=== PATIENT | female | born 1960 | race Caucasian/White ===

== ENCOUNTER → 2016-10-20 | Outpatient (CLI) | payer BC ==
[~2016-10-20] MED LIST: ASCA500 PO; ASPCH81 PO; CHOL100010 PO; CYAN500T13 PO; DIGESTIVE ENZYMES PO; DVN80125 PO; ERGO1CAP41 PO; FOLI1TAB7 PO; HYDR0.5T PO; LEVO25TA5 PO; LUBI8CAP4 PO; MAGN400T6 PO; NXM/40 PO; PANT40TA PO; PRED-301 PO; PRED10TA PO; SIMV20TA2 PO; VALS160T60 PO; [UNRECOGNIZED DRUG - OTHER] PO
[2016-10-20 18:10] LABS: THYROID STIMULATING HORMONE 1.38 uIu/ml (0.300-4.500)
[2016-10-22 16:33] LABS: MICROSOMAL AB <1 IU/ML (<9)
== END | disposition home or self-care (01) ==
LOC: C.LAB1850 17:14
PROVIDERS: ATTEND Family Medicine
DX: E03.9 Hypothyroidism, unspecified (principal); E53.8 Deficiency of other specified B group vitamins; E55.9 Vitamin D deficiency, unspecified

== ENCOUNTER → 2016-12-07 | Outpatient (CLI) | payer BC ==
[2016-12-07 10:07] LABS: CHOLESTEROL/HDL RATIO 3.4; THYROID STIMULATING HORMONE 0.543 uIu/ml (0.300-4.500)
[2016-12-07 10:10] LABS: ESTIMATED AVERAGE GLUCOSE 117 mg/dl; HA1C FLAG Normal (Normal)
== END | disposition home or self-care (01) ==
LOC: C.LAB1850 07:06
PROVIDERS: ATTEND Family Medicine
DX: E78.5 Hyperlipidemia, unspecified (principal); R73.03 Prediabetes; E03.9 Hypothyroidism, unspecified

== ENCOUNTER → 2017-03-22 | Outpatient (CLI) | payer BC ==
[~2017-03-22] MED LIST changes: -ERGO1CAP41 PO; +ERGO500011 PO
--- NOTE | 2017-03-22 15:14 | DIAGNOSTIC IMAGING REPORT ---
KUB CLINICAL HISTORY: CONSTIPATION COMPARISON STUDY: No previous studies for comparison. FINDINGS: There is no pathologic bowel dilatation. There is mild to moderate stool within the right colon. There are no calcifications suspicious for renal calculi. Pelvic basin calcifications likely represent phleboliths. IMPRESSION: 1. No evidence of pathologic bowel dilatation 2. Mild to moderate stool within the right colon. Electronically signed by: Juarez Mccall M.D. 03/22/2017 3:13 PM Dictated Date/Time: 03/22/2017 3:12 PM
[2017-03-22 18:20] LABS: ALT/SGPT 31 U/L (12-78); AST/SGOT 17 U/L (15-37); BLOOD UREA NITROGEN 16 mg/dl (7-18); BUN/CREATININE RATIO 19.3 (10-20); CALCIUM 8.9 mg/dl (8.5-10.1); CARBON DIOXIDE 28 mmol/L (21-32); CHLORIDE 108 mmol/L (98-107); CREATININE 0.81 mg/dl (0.60-1.20); GLUCOSE 97 mg/dl (70-99); POTASSIUM 3.8 mmol/L (3.5-5.1); SODIUM 143 mmol/L (136-145)
[2017-03-22 18:31] LABS: ALB/GLOB RATIO 1.1 (0.9-2); ALKALINE PHOSPHATASE 79 U/L (45-117); THYROID STIMULATING HORMONE 0.725 uIu/ml (0.300-4.500)
== END | disposition home or self-care (01) ==
LOC: C.RADPV 14:35
PROVIDERS: ATTEND Nurse Practitioner
DX: K59.00 Constipation, unspecified (principal); R39.9 Unspecified symptoms and signs involving the genitourinary system; Z79.899 Other long term (current) drug therapy; I10 Essential (primary) hypertension

== ENCOUNTER → 2017-03-31 | Outpatient (CLI) | payer BC ==
[~2017-03-31] MED LIST changes: -DVN80125 PO; +ERGO1CAP41 PO; -ERGO500011 PO; -LEVO25TA5 PO; -MAGN400T6 PO; -PANT40TA PO; -SIMV20TA2 PO; -[UNRECOGNIZED DRUG - OTHER] PO
--- NOTE | 2017-03-31 08:22 | DIAGNOSTIC IMAGING REPORT ---
ABDOMINAL ULTRASOUND, RIGHT UPPER QUADRANT HISTORY: Pain R10.9 Abdominal pain of multiple sites. COMPARISON: 12/31/2014 FINDINGS: Pancreas: The pancreas demonstrates a normal echotexture. Liver: Fatty infiltration Gallbladder: No gallbladder wall thickening. No gallstones. CBD: 4 mm Right kidney: No hydronephrosis. IMPRESSION: Fatty infiltration of liver. Otherwise negative study. No change from the prior exam Electronically signed by: Yehuda Das M.D. 03/31/2017 8:21 AM Dictated Date/Time: 03/31/2017 8:19 AM
== END | disposition home or self-care (01) ==
LOC: C.ULTR 07:29
PROVIDERS: ATTEND Nurse Practitioner
DX: R10.11 Right upper quadrant pain (principal); K76.0 Fatty (change of) liver, not elsewhere classified

== ENCOUNTER → 2017-05-09 | Day surgery (SDC) | payer BC ==
[2017-04-22 12:07] VITALS: Ht 152.4 cm; Wt 90.0 kg
[~2017-05-09] VITALS: Ht 152.4 cm; Wt 90.0 kg
[~2017-05-09] MED LIST changes: -DIGESTIVE ENZYMES PO; +DVN80125 PO; -ERGO1CAP41 PO; +LEVO25TA5 PO; +LIDOCAINE HCL 2% 2 ML VIAL (20MG/ML) ONE; -LUBI8CAP4 PO; +MAGN400T6 PO; -NXM/40 PO; +PANT40TA PO; -PRED-301 PO; -PRED10TA PO; +PROPOFOL IV EMULSION 10 MG/ML 20 ML VIAL IV ONE; +SIMV20TA2 PO; -VALS160T60 PO; +[UNRECOGNIZED DRUG - OTHER] PO
[2017-05-09 12:42] VITALS: TEMP 36.8
--- NOTE | 2017-05-09 13:05 | Endo History and Physical ---
History & Physical Date of Service: May 09, 2017. Chief Complaint: REFLUX, HIATAL HERNIA Referring Physician: DR. STANTON History of Present Illness For EGD Past Surgical History Hx Cardiac Surgery: No Hx Internal Defibrillator: No Hx Pacemaker: No Hx Abdominal Surgery: Yes (EVELYN BSO) Hx of Implantable Prosthesis: No Hx Post-Op Nausea and Vomiting: No Hx Cancer Surgery: Yes (MELANOMA REMOVALS) Hx Thoracic Surgery: No Hx Orthopedic: No Hx Urinary Tract Surgery: No Family History Colon CA Social History Smoking Status: Never Smoker Hx Substance Use: No Hx Alcohol Use: No Allergies Coded Allergies: Lidocaine (Verified Allergy, Severe, ANAPHYLAXIS, 04/22/17) Procaine (Verified Allergy, Severe, anaphylaxis, 05/09/17) Apple (Verified Allergy, Mild, SCRATCHY THROAT, 04/22/17) Lorazepam (Verified Allergy, Mild, HIVES, PSYCH SYMPTOMS, 04/22/17) INCREASED AGITATION Iodine (Verified Allergy, Unknown, "seafood"= hives, 05/09/17) Mushroom (Verified Allergy, Unknown, THROAT SCRATCHY, 04/22/17) NUTS (Verified Allergy, Unknown, HIVES, 04/22/17) Penicillins (Verified Allergy, Unknown, RASH, 04/22/17) Sulfa Drugs (Verified Allergy, Unknown, HIVES, 04/22/17) Current Medications Reported Home Medications Medications Dose Route/Sig Max Daily Dose Days Date Category Dose Instructions [Super Digestive Enz] 1 Tab PO NOON 04/22/17 Reported Mag-Ox (Magnesium Oxide) 400 Mg Tab 400 Mg PO HS 04/22/17 Reported Zocor (Simvastatin) 20 Mg Tab 20 Mg PO HS 04/22/17 Reported Protonix (Pantoprazole Sodium) 40 Mg Tab 40 Mg PO BID 04/22/17 Reported Levothyroxine Sodium 25 Mcg Tab 1 Tab PO QAM 04/22/17 Reported Diovan Hct (Valsartan/Hctz) 1 Tab Tab 0.5 Tab PO NOON 04/22/17 Reported 80MG/12.5MG Vitamin C (Ascorbic Acid) 500 Mg Tab 1,000 Mg PO QPM 01/15/14 Reported Plaquenil (Hydroxychloroquine Sulfate) 200 Mg Tab 200 Mg PO BID 01/15/14 Reported Vitamin D (Cholecalciferol) 1,000 Inter.unit Tab 1,000 Inter.unit PO NOON 08/15/13 Reported Vitamin B12 500MCG (Cyanocobalamin) 500 Mcg Tab 1,000 Mcg PO NOON 06/02/12 Reported Folvite (Folic Acid) 1 Mg Tab 1 Mg PO NOON 06/02/12 Reported Aspirin Tab-Chewable * (Aspirin) 81 Mg Chew 81 Mg PO NOON 07/26/09 Reported Vital Signs Weight (Kilograms): 90 Height (Feet): 5 Height (Inches): 0 Date Time Temp Pulse Resp B/P (MAP) Pulse Ox O2 Delivery O2 Flow Rate FiO2 05/09/17 12:42 36.8 76 16 138/86 (103) 98 Room Air Physical Exam General Appearance: WD/WN Respiratory/Chest: Respiratory effort: no dyspnea Cardiovascular: Heart Auscultation: RRR Abdomen: Inspection & Palpation: soft Assessment and Plan Abd pain for EGD
--- NOTE | 2017-05-09 13:29 | Discharge Instructions ---
Endoscopy Patient Instructions Date / Procedure(s) Performed May 09, 2017. EGD Allergy Information Coded Allergies: Lidocaine (Verified Allergy, Severe, ANAPHYLAXIS, 04/22/17) Procaine (Verified Allergy, Severe, anaphylaxis, 05/09/17) Apple (Verified Allergy, Mild, SCRATCHY THROAT, 04/22/17) Lorazepam (Verified Allergy, Mild, HIVES, PSYCH SYMPTOMS, 04/22/17) INCREASED AGITATION Iodine (Verified Allergy, Unknown, "seafood"= hives, 05/09/17) Mushroom (Verified Allergy, Unknown, THROAT SCRATCHY, 04/22/17) NUTS (Verified Allergy, Unknown, HIVES, 04/22/17) Penicillins (Verified Allergy, Unknown, RASH, 04/22/17) Sulfa Drugs (Verified Allergy, Unknown, HIVES, 04/22/17) Discharge Date / Findings May 09, 2017. Gastric polyps Medication Instructions Stopped Medication(s): 05/05/17 ASPIRIN Restart Stopped Medication(s): resume meds Reported Home Medications Medications Dose Route/Sig Max Daily Dose Days Date Category Dose Instructions [Super Digestive Enz] 1 Tab PO NOON 04/22/17 Reported Mag-Ox (Magnesium Oxide) 400 Mg Tab 400 Mg PO HS 04/22/17 Reported Zocor (Simvastatin) 20 Mg Tab 20 Mg PO HS 04/22/17 Reported Protonix (Pantoprazole Sodium) 40 Mg Tab 40 Mg PO BID 04/22/17 Reported Levothyroxine Sodium 25 Mcg Tab 1 Tab PO QAM 04/22/17 Reported Diovan Hct (Valsartan/Hctz) 1 Tab Tab 0.5 Tab PO NOON 04/22/17 Reported 80MG/12.5MG Vitamin C (Ascorbic Acid) 500 Mg Tab 1,000 Mg PO QPM 01/15/14 Reported Plaquenil (Hydroxychloroquine Sulfate) 200 Mg Tab 200 Mg PO BID 01/15/14 Reported Vitamin D (Cholecalciferol) 1,000 Inter.unit Tab 1,000 Inter.unit PO NOON 08/15/13 Reported Vitamin B12 500MCG (Cyanocobalamin) 500 Mcg Tab 1,000 Mcg PO NOON 06/02/12 Reported Folvite (Folic Acid) 1 Mg Tab 1 Mg PO NOON 06/02/12 Reported Aspirin Tab-Chewable * (Aspirin) 81 Mg Chew 81 Mg PO NOON 07/26/09 Reported Provider Instructions Activity Restrictions - No exercising or heavy lifting for 24 hours. - Do not drink alcohol the day of the procedure. - Do not drive a car or operate machinery until the day after the procedure. - Do not make any important decisions or sign important papers in 24 hours after the procedure. Following Day: - Return to full activity which may include returning to work/school. Diet Start your diet with liquids and light foods (jello, soup, juice, toast). Then eat your usual diet if not nauseated. Treatment For Common After Affects For mild abdominal pain, bloating, or excessive gas: - Rest - Eat lightly - Lie on right side Follow-Up Information Follow-up with DR. STANTON as scheduled Anesthesia Information What You Should Know You have had a procedure that required some medicine to reduce anxiety and discomfort. This treatment is called moderate sedation. After receiving the treatment, you may be sleepy, but you will be able to breathe on your own. The effects of the treatment may last for several hours. Follow these instructions along with Activity/Diet recommendations noted above: * Do NOT do anything where dizziness or clumsiness would be dangerous. * Rest quietly at home today, then you can be up and about tomorrow. * Have a responsible person stay with you the rest of today. * You may have had an I.V. today. If so, you may take the dressing off later today. Recommendations Call your doctor if: * Trouble breathing * Continuous vomiting for more than 24 hours * Temperature above 101 degrees * Severe abdominal pain or bloating * Pain not relieved by pain medicine ordered * There is increased drainage or redness from any incision * A large amount of rectal bleeding greater than 2-3 tablespoons. (If you had a polyp/s removed or have hemorrhoids, a small amount of blood - from the rectum is to be expected.) * You have any unanswered questions or concerns. IN THE EVENT OF A SERIOUS EMERGENCY, GO TO THE NEAREST EMERGENCY ROOM Your discharge instructions were prepared by provider Collin Salgado. Patient Instructions Signature Page Angela Tucker Patient (or Guardian) Signature/Date: I have read and understand the instructions given to me by my caregivers. Caregiver/RN/Doctor Signature/Date: The above-named patient and/or guardian has received patient instructions on this date. + Original Patient Signature Page (only) stays with chart. Please make copy for patient.
--- NOTE | 2017-05-09 13:34 | GI REPORT ---
Procedure Date: 05/09/2017 12:40 PM Procedure: Upper GI endoscopy Indications: Epigastric abdominal pain Medicines: Propofol total dose 140 mg IV Complications: No immediate complications. Estimated Blood Loss: Estimated blood loss: none. Procedure: Pre-Anesthesia Assessment: - Prior to the procedure, a History and Physical was performed, and patient medications, allergies and sensitivities were reviewed. The patient's tolerance of previous anesthesia was reviewed. - The risks and benefits of the procedure and the sedation options and risks were discussed with the patient. All questions were answered and informed consent was obtained. After obtaining informed consent, the endoscope was passed under direct vision. Throughout the procedure, the patient's blood pressure, pulse, and oxygen saturations were monitored continuously. The On-site loaner was introduced through the mouth, and advanced to the second part of duodenum. The upper GI endoscopy was accomplished without difficulty. The patient tolerated the procedure well. Findings: The examined esophagus was normal. Multiple 4 mm semi-sessile polyps were found in the gastric body. The examined duodenum was normal. Impression: - Normal esophagus. - Multiple gastric polyps. - Normal examined duodenum. - No specimens collected. Recommendation: - Discharge patient to home (ambulatory). - Continue present medications. - Return to primary care physician PRN. Collin Salgado M.D. Collin Salgado MD 05/09/2017 1:33:23 PM This report has been signed electronically. Note Initiated On: 05/09/2017 12:40 PM I attest to the content of the Intraoperative Record and orders documented therein, exceptions below
[2017-05-09 14:08] VITALS: BP 131/86; PULSE 68; O2SAT 98
--- NOTE | 2017-05-09 14:25 | Anesthesiology Progress Note ---
Anesthesia Post Op Note Date & Time May 09, 2017 at 14:25 Vital Signs Pain Intensity: 0 Vital Signs Past 12 Hours Date Time Temp Pulse Resp B/P (MAP) Pulse Ox O2 Delivery O2 Flow Rate FiO2 05/09/17 14:08 68 18 131/86 (101) 98 Room Air 05/09/17 13:53 64 18 131/84 (100) 99 Room Air 05/09/17 13:38 72 16 135/82 (99) 100 Room Air 05/09/17 12:42 36.8 76 16 138/86 (103) 98 Room Air Notes Mental Status: alert / awake / arousable, participated in evaluation Pt Amnestic to Procedure: Yes Nausea / Vomiting: adequately controlled Pain: adequately controlled Airway Patency, RR, SpO2: stable & adequate BP & HR: stable & adequate Hydration State: stable & adequate Anesthetic Complications: no major complications apparent
--- NOTE | 2017-05-12 12:35 | EDITING REQUIRED CODING QUERY ---
DOCUMENTATION CONFLICTION Pathology results indicate that biopsy specimens were taken from the duodenum but procedure note states that no biopsies were performed during the EGD procedure on 05/09/17. Please clarify below: (x ) Biopsies were taken of the duodenum ( ) No biopsies were taken during this procedure ( ) Other, please clarify: Thank you for your assistance, Prisca Rios - Radar Scientist
== END | disposition home or self-care (01) ==
LOC: C.GI 12:03
PROVIDERS: ATTEND Internal Medicine Gastroenterology
DX: R10.13 Epigastric pain (principal); K31.7 Polyp of stomach and duodenum; K21.9 Gastro-esophageal reflux disease without esophagitis; K44.9 Diaphragmatic hernia without obstruction or gangrene; Z79.82 Long term (current) use of aspirin; Z90.710 Acquired absence of both cervix and uterus; Z90.722 Acquired absence of ovaries, bilateral; Z90.79 Acquired absence of other genital organ(s); Z80.0 Family history of malignant neoplasm of digestive organs

== ENCOUNTER → 2017-06-15 | Outpatient (CLI) | payer BC ==
[~2017-06-15] MED LIST changes: -LIDOCAINE HCL 2% 2 ML VIAL (20MG/ML) ONE; -PROPOFOL IV EMULSION 10 MG/ML 20 ML VIAL IV ONE
--- NOTE | 2017-06-15 17:16 | MAMMOGRAPHY REPORT ---
BILATERAL DIGITAL SCREENING MAMMOGRAM TOMOSYNTHESIS WITH CAD: 06/15/2017 CLINICAL HISTORY: Routine screening. Patient has no complaints. TECHNIQUE: Breast tomosynthesis in addition to standard 2D mammography was performed. Current study was also evaluated with a Computer Aided Detection (CAD) system. COMPARISON: Comparison is made to exams dated: 05/05/2016 mammogram, 01/06/2015 mammogram, 12/24/2013 jose antonio mogram, 12/20/2012 mammogram, 12/07/2011 mammogram, and 10/12/2010 mammogram - [facility] er. BREAST COMPOSITION: The tissue of both breasts is heterogeneously dense, which may obscure small mas ses. FINDINGS: There is a possible new faint grouping of microcalcifications in the upper outer posterior right breast, for which additional spot magnification views are recommended. There are stable benign-appearing circumscribed masses in the right upper outer quadrant, and stable asymmetry in the superior left breast. No other suspicious mass, architectural distortion or cluster of microcalcifications is seen. IMPRESSION: ACR BI-RADS CATEGORY 0: INCOMPLETE EVALUATION: NEED ADDITIONAL IMAGING EVALUATION The possible new faint grouping of microcalcifications in the upper outer posterior right breast need s additional evaluation. The patient will be called to schedule an appointment. Approximately 10% of breast cancers are not detected with mammography. A negative mammographic report should not delay biopsy if a clinically suggestive mass is present. Denice Brumfield M.D. ay/:06/15/2017 15:19:19 Chief Of Pediatric Urology: Ange SUAREZ(Mynor)(Luciano), [facility] letter sent: Addl Imaging 0 BI-RADS Code: ACR BI-RADS Category 0: Incomplete Evaluation: Need Additional Imaging Evaluation
== END | disposition home or self-care (01) ==
LOC: C.MAMM 14:30
PROVIDERS: ATTEND Obstetrics & Gynecology
DX: R92.0 Mammographic microcalcification found on diagnostic imaging of breast (principal)

== ENCOUNTER → 2017-06-29 | Outpatient (CLI) | payer BC ==
--- NOTE | 2017-06-29 15:30 | MAMMOGRAPHY REPORT ---
UNILATERAL RIGHT DIGITAL DIAGNOSTIC MAMMOGRAM: 06/29/2017 CLINICAL HISTORY: Callback from screening mammography for a possible cluster of microcalcifications i n the upper outer quadrant of the right breast. Patient reports she is allergic to all local anesthesia. TECHNIQUE: Spot magnification right CC and ML views were obtained. COMPARISON: Comparison is made to exams dated: 06/15/2017 mammogram, 05/05/2016 mammogram, 01/06/2015 jose antonio mogram, 12/24/2013 mammogram, 12/20/2012 mammogram, and 12/07/2011 mammogram - [facility] er. BREAST COMPOSITION: There are scattered areas of fibroglandular density in the right breast. FINDINGS: There is a stable 7.9 mm mass with associative micro-calcification and another stable 15 mm mass in the upper outer quadrant of the right breast, which appear similar to prior mammograms datin g back to at least 2010, therefore likely benign. There is a single benign coarse calcification also in the right upper outer quadrant. However, there is a 3 mm grouping of amorphous microcalcificatio ns that appear to increasingly conspicuous based on the screening mammogram. When comparing back to prior available mammograms, this was likely present dating back to 2011, therefore likely benign. On the 2012 mammogram many calcifications in the right upper outer quadrant and straighter layering, rebolledo ggesting benign milk of calcium. Given the slight increased conspicuity, a short interval follow-up right diagnostic mammogram including spot magnification views is read made to ensure stability in 6 m onths. IMPRESSION: ACR-BI-RADS CATEGORY 3: PROBABLY BENIGN A small, 3 mm grouping of amorphous microcalcifications in the right upper outer quadrant most likely represents benign fibrocystic changes. However, a short interval follow-up right diagnostic mammogr am including spot magnification views is read middle to ensure stability in 6 months. These results and recommendations were discussed with the patient at the time of the exam. Approximately 10% of breast cancers are not detected with mammography. A negative mammographic report should not delay biopsy if a clinically suggestive mass is present. Denice Brumfield M.D. ay/:06/29/2017 08:31:35 Multiple Effect Evaporator Operator: Terri Valdovinos, [facility] letter sent: Follow Up Recommended 3 BI-RADS Code: ACR-BI-RADS Category 3: Probably Benign
== END | disposition home or self-care (01) ==
LOC: C.MAMM 07:52
PROVIDERS: ATTEND Obstetrics & Gynecology
DX: R92.2 Inconclusive mammogram (principal); R92.0 Mammographic microcalcification found on diagnostic imaging of breast

== ENCOUNTER → 2017-09-07 | Outpatient (CLI) | payer BC ==
[~2017-09-07] MED LIST changes: -FOLI1TAB7 PO; +FOLI1TAB8 PO
[2017-09-07 09:30] LABS: BASO % 0.3 %; BASO ABS # 0.02 K/uL (0-0.2); EOS % 2.7 %; EOS ABS # 0.17 K/uL (0-0.5); HEMATOCRIT 38.7 % (37-47); HEMOGLOBIN 12.3 g/dL (12.0-16.0); IG# 0.01 K/uL (0.00-0.02); LYMPH % 19.6 %; LYMPH ABS # 1.23 K/uL (1.2-3.4); MEAN CELL VOLUME 88.2 fL (80-100); MEAN CORPUSCULAR HGB CONC 31.8 g/dl (32-36); MEAN PLATELET VOLUME 10.6 fL (7.4-10.4); MONO % 8.3 %; MONO ABS # 0.52 K/uL (0.11-0.59); NEUT % 68.9 %; NEUT ABS # 4.31 K/uL (1.4-6.5); PLATELET COUNT 194 K/uL (130-400); RED CELL DISTRIBUTION WIDTH CV 13.4 % (11.5-14.5); RED CELL DISTRIBUTION WIDTH SD 43.6 fL (36.4-46.3); WHITE BLOOD COUNT 6.26 K/uL (4.8-10.8)
[2017-09-07 09:51] LABS: HEMOGLOBIN A1C 5.9 % (4.5-5.6)
[2017-09-07 10:18] LABS: ALBUMIN 3.7 gm/dl (3.4-5.0); ALKALINE PHOSPHATASE 71 U/L (45-117); ALT/SGPT 29 U/L (12-78); AST/SGOT 15 U/L (15-37); BLOOD UREA NITROGEN 14 mg/dl (7-18); CALCIUM 8.8 mg/dl (8.5-10.1); CARBON DIOXIDE 27 mmol/L (21-32); GLUCOSE 120 mg/dl (70-99); POTASSIUM 3.8 mmol/L (3.5-5.1); SODIUM 140 mmol/L (136-145)
[2017-09-07 10:31] LABS: CHOLESTEROL 123 mg/dl (0-200); LDL CHOLESTEROL CALCULATED 61 mg/dl; TOTAL PROTEIN 7.4 gm/dl (6.4-8.2)
== END | disposition home or self-care (01) ==
LOC: C.LAB 08:09
PROVIDERS: ATTEND Family Medicine
DX: D64.9 Anemia, unspecified (principal); I10 Essential (primary) hypertension; E78.5 Hyperlipidemia, unspecified; E53.8 Deficiency of other specified B group vitamins; N90.89 Other specified noninflammatory disorders of vulva and perineum

== ENCOUNTER → 2017-10-12 | Outpatient (CLI) | payer OTHER ==
--- NOTE | 2017-10-12 13:30 | DIAGNOSTIC IMAGING REPORT ---
CERVICAL SPINE 4 VIEWS CLINICAL HISTORY: Neck pain. FINDINGS: AP, lateral, swimmer's, and odontoid views of the cervical spine are obtained. No prior studies are available for comparison at the time of dictation. The skeletal structures appear osteopenic. There is no radiographic evidence of fracture or malalignment. The odontoid process and lateral masses appear intact on the open-mouth view. The spinolaminar line is maintained. Productive degenerative change with narrowing of the interval is seen at the atlantodental joint. Vertebral body height and alignment are preserved throughout the cervical spine. The disc spaces are maintained. Mild facet arthropathy is suggested on the frontal view. The prevertebral soft tissues are within normal limits. Partially imaged apical lung parenchyma is within normal limits. IMPRESSION: 1. No acute bony abnormality seen involving the cervical spine. 2. Osteopenia and minimal spondylotic change as above. Dictated: 10/12/2017 1:04 PM Transcribed: 10/12/2017 1:30 PM KATHIA_Russell Electronically signed by: Joseph Gray M.D. 10/12/2017 1:37 PM Dictated Date/Time: 10/12/2017 1:04 PM
== END | disposition home or self-care (01) ==
LOC: C.RAD1850 12:28
PROVIDERS: ATTEND Family Medicine
DX: M54.2 Cervicalgia (principal); M85.88 Other specified disorders of bone density and structure, other site; M47.812 Spondylosis without myelopathy or radiculopathy, cervical region

== ENCOUNTER → 2018-02-02 | Outpatient (CLI) | payer OTHER | END | disposition home or self-care (01) | LOC: C.PAPS 12:06 | PROVIDERS: ATTEND Obstetrics & Gynecology | DX: Z01.419 Encounter for gynecological examination (general) (routine) without abnormal findings (principal) ==

== ENCOUNTER → 2018-02-02 | Outpatient (CLI) | payer OTHER ==
--- NOTE | 2018-02-02 12:40 | MAMMOGRAPHY REPORT ---
UNILATERAL RIGHT DIGITAL DIAGNOSTIC MAMMOGRAM TOMOSYNTHESIS WITH CAD: 02/02/2018 CLINICAL HISTORY: Six-month follow-up of right breast calcifications. The patient reports fullness o f her right breast compared to her left breast, and is also being seen for lymphedema which is most p rominent involving her right arm. Remote history of melanoma which also involved removal of groin ly mph nodes. She reports she is allergic to all local anesthesia. TECHNIQUE: Breast tomosynthesis in addition to standard 2D mammography was performed. Current study was also evaluated with a Computer Aided Detection (CAD) system. Spot magnification right CC and MLO views and full right CC and MLO 2D and tomosynthesis images were obtained. COMPARISON: Comparison is made to exams dated: 06/29/2017 mammogram, 06/15/2017 mammogram, 05/05/2016 ma mmogram, 01/06/2015 mammogram, 12/24/2013 mammogram, and 12/20/2012 mammogram - [facility]. BREAST COMPOSITION: There are scattered areas of fibroglandular density in the right breast. FINDINGS: Spot magnification views of the right breast again demonstrate a small 4 mm cluster of punc alexis and amorphous calcifications in the right upper outer quadrant. The calcifications are not sign ificantly changed compared to spot magnification views from the June 2017 exam. On full-field v iews, the calcifications may have been present dating back to the 2011 exam although it is difficult to make an accurate comparison due to technical differences. The options of another short interval f ollow-up versus stereotactic biopsy were discussed with the patient, and she cannot undergo stereotac tic biopsy as she is allergic to all local anesthesia. Given that the calcifications are not signifi cantly changed, it is reasonable to continue to follow the calcifications and if the calcifications i ncrease then a surgical biopsy could be performed. The remainder of the right breast is stable compared to prior exams, without suspicious masses, calci fications, or areas of architectural distortion noted. There is a stable intramammary lymph node wit h associated microcalcifications in the right upper outer quadrant. A partially visualized right axi llary lymph node with associated microcalcifications appear stable to multiple prior exams including the 2012 exam. IMPRESSION: ACR-BI-RADS CATEGORY 3: PROBABLY BENIGN Small 4 mm cluster of calcifications in the right upper outer quadrant is not significantly changed c ompared to the June 2017 exam. The calcifications are probably benign and recommend bilateral d iagnostic tomosynthesis mammograms in 6 months, to reevaluate the right breast calcifications and for routine mammography of the left breast. Also recommend clinical follow-up for right breast fullness and arm lymphedema described by the patient. The patient has been verbally notified of the results. Approximately 10% of breast cancers are not detected with mammography. A negative mammographic report should not delay biopsy if a clinically suggestive mass is present. Mercedes Walden M.D. ah/:02/02/2018 12:14:12 Internal Affairs Investigator: Ange SUAREZ(Mynor)(M), [facility] letter sent: Follow Up Recommended 3 BI-RADS Code: ACR-BI-RADS Category 3: Probably Benign
== END | disposition home or self-care (01) ==
LOC: C.MAMM 09:54
PROVIDERS: ATTEND Obstetrics & Gynecology
DX: N64.9 Disorder of breast, unspecified (principal)